=== PATIENT | female | born 1960 | race Caucasian/White ===

== ENCOUNTER → 2016-12-25 | Outpatient (CLI) | payer BC ==
[~2016-12-25] MED LIST: COLACE100 MG PO; CORTEF5 MG PO; DEXAMETHASO4 MG/1 ML IM; ESTRACE(ESTRADIO1 MG PO; LEVOTHROID(SYN75 MCG PO; LIPITOR10 MG PO; MIRALAX17 GM PO; NORCO 5-325 MG1 TAB PO; PROMETRIUM100 MG PO; PROTONIX40 MG PO; TYLENOL EXTRA500 MG PO; ULTRAM50 MG PO; VALIUM2 MG PO; XARELTO10 MG PO
== END ==
LOC: GBCOE 12-14 09:30
DX: Z12.31 Encounter for screening mammogram for malignant neoplasm of breast (principal)
CPT/HCPCS: G0202